=== PATIENT | female | born 1945 | race Two or more races ===

== ENCOUNTER 2022-02-03 05:00 | Day surgery (SDC) | payer OTHER | END 2022-02-03 11:25 | disposition home or self-care (01) | LOC: AMB-ENDOS 05:00 → CIR.AMB 15:30 | PROVIDERS: ATTEND Colon & Rectal Surgery | DX: K63.5 Polyp of colon (principal); K64.0 First degree hemorrhoids; Z85.048 Personal history of other malignant neoplasm of rectum, rectosigmoid junction, and anus; I10 Essential (primary) hypertension ==